=== PATIENT | female | born 1970 | race Caucasian/White ===

== ENCOUNTER → 2020-12-31 | Outpatient (CLI) | payer OTHER ==
[2015-03-25 12:31] VITALS: BP 113/76
[~2020-12-31] MED LIST: ACET325T9 PO; BIOT1CAP3 PO; IBUP200T77 PO; MULT-208 PO; RANI-376 PO
--- NOTE | 2020-12-31 16:17 | KCIC ---
CT SCREENING FOR CORONARY ARTERY History: Reason: Cardiovascular screening, family hx. stroke. / Spl. Instructions: / History: Technique: With retrospective electrocardiogram gating axial reconstructed noncontrast images of the chest at the level of the coronary arteries was performed. Images were post processed on workstation and calcium score calculated using the modified Agatston Janowitz protocol. Exposure: One or more of the following individualized dose reduction techniques were utilized for thi s examination: 1. Automated exposure control 2. Adjustment of the mA and/or kV according to patient size 3. Use of iterative reconstruction technique. Comparison: None Findings: Total coronary calcium score is 0. This is a no plaque burden and low cardiovascular diseas e risk. This is based on the calcium score of 0 of the left main coronary artery, 0 of the left anter ior descending artery, score of 0 of the left circumflex artery and score of 0 of the right coronary artery. Noncoronary findings: No significant incidental findings. IMPRESSION: 1. Low cardiovascular disease risk. No plaque burden. 2. Calcium score 0. Electronically signed by: Mark Arreola DO (12/31/2020 4:14 PM) [id number]
== END ==
LOC: KCIC CT 12:28
PROVIDERS: ATTEND Internal Medicine Cardiovascular Disease
DX: Z13.6 Encounter for screening for cardiovascular disorders (principal); R07.9 Chest pain, unspecified; Z82.3 Family history of stroke
CPT/HCPCS: 75571

== ENCOUNTER → 2020-12-31 | Outpatient (CLI) | payer OTHER ==
[2015-03-25 12:31] VITALS: BP 113/76
--- NOTE | 2020-12-31 16:18 | KCIC ---
US DPLX CAROTID BILAT History: Reason: CAROTID BRUIT / Spl. Instructions: CARDIOLOGY TO READ / History: COMPARISON: None Technique: Duplex sonography of the cervical portion of both carotid arteries was performed. Real-mylene e grayscale, color flow Doppler, and Doppler spectral waveform analysis is performed. PQRS Compliance Statement - Stenosis calculations for CT, MR and conventional angiography are based u jeny measurement of the distal ICA diameter in accordance with the NASCET methodology. Stenosis calcu lations for carotid ultrasound studies are derived from validated velocity criteria which are known t o correlate with the NASCET methodology. Findings: Right side: Peak systolic flow velocity of the CCA is 101 cm/sec. Peak systolic flow velocity of the ICA is 84 cm/sec. The ICA/CCA ratio is 0.83. Peak end diastolic flow velocity of the ICA is 21 cm/sec. The peak systolic velocity of the ECA is 83 cm/sec. No significant plaque formation is identified. Left side: Peak systolic flow velocity of the CCA is 123 cm/sec. Peak systolic flow velocity of the ICA is 101 cm/sec. The ICA/CCA ratio is 0.2. Peak end diastolic flow velocity of the ICA is 47 cm/sec. Peak systolic flow velocity of the ECA is 107 cm/sec. No significant plaque formation is identified. Vertebral arteries: Bilateral vertebral arteries demonstrate antegrade flow. IMPRESSION: 1. No hemodynamically significant internal carotid artery stenosis. Electronically signed by: Mark Arreola DO (12/31/2020 4:16 PM) [id number]
== END ==
LOC: KCIC US 12:33
PROVIDERS: ATTEND Internal Medicine Cardiovascular Disease
DX: R09.89 Other specified symptoms and signs involving the circulatory and respiratory systems (principal)
CPT/HCPCS: 93880